=== PATIENT | female | born 1965 | race Caucasian/White ===

== ENCOUNTER 2018-01-20 09:07 | Emergency (ER) | payer SELFPAY ==
[2018-01-20 09:13] VITALS: BP 124/77; BMI 34.7
--- NOTE | 2018-01-20 10:22 | CT ---
History: Sinus pressure headaches and nausea. Study: CT sinus without contrast. Comparison: CT head dated November 14, 2014. Technique: Multiple contiguous axial images of the sinuses without contrast. Coronal/sagittal reforma ts were obtained. Findings: Mild/moderate mucosal thickening of the right sphenoid sinus. Small right maxillary sinus m ucous retention cyst. Remaining visualized paranasal sinuses and mastoid air cells are clear. There i s a mild right nasal septum deviation. The ostiomeatal units, sphenoethmoidal recesses, and frontoeth moidal recesses are patent. Interval placement of a vascular stent within the right vertebral artery at the level of the foramen magnum. 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 Remaining visualized intracranial structures appear normal for age. The orbits are unremar kable. The visualized bones and surrounding soft tissues are unremarkable. Impression: Sinus disease as above. Reported By:
--- NOTE | 2018-01-20 10:30 | DR.GENAD ---
HPI - PCP Primary Care Physician: SAULO CEDILLO - Complaint/Symptoms Chief Complaint Doctors Comments: Patient presents with complaint of frequent headaches. Chief Complaint:: PT C/O ? SINUSITIS, GARCÍA AND PT HAS A TRACH AND SHE C/O OF HAVING LOTSS OF SECRETIONS, Self Treatment fo Chief Complaint: PT IS PINK RESP NON- LABORDED AND NO SECETIONS NOTED IN TRACH . - Source History Provided: Patient - Mode of Arrival Mode of Arrival: Ambulatory - Timing Onset of Chief Complaint: 01/19/18 PMH - PMH Past Medical History: No Past Medical History: CVA Past Surgical History: Yes Surgical History: [employer]KE[employer] Surgery Past Surgical History Comment: STENT TO FARNAZ FARFAN, - Family History History of Family Medical Conditions: No Family Medical History: [place], Coronary Artery Disease, Hypertension - Social History Does patient currently use any type of tobacco product: No Have you used tobacco products in the last 12 months: No Type of Tobacco Use: None Does any household member use tobacco: No Alcohol Use: None Do you use any recreational Drugs:: No Lives With: Family Lives Where: Home - infectious screening In the last 2 months have you had wt loss of >10#?: NO Have you had fever, night sweats or hemotysis?: No Have you traveled outside the country in the last 6 months?: No Isolation: Standard ROS - Review of Systems Eyes: No Symptoms Reported ENTM: No Symptoms Reported Respiratoy: No Symptoms Reported Cardiovascular: No Symptoms Reported Gastrointestinal/Abdominal: No Symptoms Reported Genitourinary: No Symptoms Reported Neurological: No Symptoms Reported Musculoskeletal: No Symptoms Reported Integumentary: No Symptoms Reported Hematologic/Lymphatic: No Symptoms Reported Endocrine: No Symptoms Reported Psychiatric: No Symptoms Reported All Other Systems: Reviewed and Negative PE - Vital Signs Vitals: Temperature 97.1 F Pulse Rate 104 Respiratory Rate 20 Blood Pressure 124/77 O2 Sat by Pulse Oximetry 96 - General Limitations: No Limitations General Appearance: Alert, In No Apparent Distress - Head Head Exam: Normal Inspection, Atraumatic - Eyes Eye exam: Normal Appearance, PERRL, EOMI - ENT ENT Exam: Normal Exam External Ear Exam: Normal External Inspection TM/Canal Exam: Bilateral Normal Nose Exam: Normal Nose Exam Mouth Exam: Normal Inspection Throat Exam: Normal Inspection - Neck Neck Exam: Trachea Midline - Chest Chest Inspection: Normal Inspection - Respiratory Respiratory Exam: Normal Lung Sounds Bilat Respiratory Exam: Bilateral Clear to Auscultation - Cardiovascular Cardiovascular Exam: Regular Rate, Normal Rhythm - Abdominal Exam Abdominal Exam: Normal Inspection Abdominal Tenderness: negative: RUQ, RLQ, LUQ, LLQ, Epigastrium, Suprapubic, Diffuse, Mild, Moderate, Severe, Other - Extremities Extremities Exam: Normal Inspection, Full ROM - Back Back Exam: Normal Inspection, Full ROM - Neurologic Neurological Exam: Alert, Oriented X3, CN II-XII Intact - Psychiatric Psychiatric Exam: Normal Affect - Skin Skin Exam: Warm, Dry, Intact ROR - XRAY XRAY Interpreted by: Radiologist (Sinus series CT: Mild/ moderate mucosal thickening of the right sphenoid sinus. Small right mnaxillary sinus mucous retention cyst. Remaining visualized paranasal sinuses and mastoid aire cells are clear. k There is a mild right nasal septum deviation. The ostiomeatal units, sphenoethmoidal recesses, and frontoethmoidal recesses are patent. Interval placement of vascular stent within the right vertebral artery at the level of the foramen magnum. 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 Remaining, visualiced intracranial structures appear normal for age. The orbits are unremarkable. The visualized bones and surrounding soft tissues are unmarkable.) - Diagnosis Discharge Problem: Sinusitis Qualifiers: Sinusitis location: sphenoidal Chronicity: subacute Qualified Code(s): J01.30 - Acute sphenoidal sinusitis, unspecified Sinusitis, acute, maxillary Qualifiers: Recurrence: not specified as recurrent Qualified Code(s): J01.00 - Acute maxillary sinusitis, unspecified - Discharge Plan Condition: Stable - Follow ups/Referrals Follow ups/Referrals: RICHIE HEBERT [Primary Care Provider] - 3 days - Instructions
[2018-01-20] MEDS ORDERED: TORADOL 60 MG VIAL IM ONE (10:36)
[2018-01-20] MEDS ORDERED: TORADOL 60 MG VIAL ONE (10:46)
== END 2018-01-20 10:38 | disposition home or self-care (01) ==
LOC: ER 09:22
DX: J01.30 Acute sphenoidal sinusitis, unspecified (principal); J01.80 Other acute sinusitis
CPT/HCPCS: 70486; 96372; 99282; 99283; J1885